=== PATIENT | male | born 1960 | race Caucasian/White ===

== ENCOUNTER → 2016-11-08 | Outpatient (CLI) | payer BC ==
[2016-11-08 07:57] LABS: HEMOGLOBIN 15.8 g/dL (14.1-18.0); LYMPH % 36.4 % (10-50)
[2016-11-08 08:45] LABS: BUN 12 mg/dL (7-18)
[2016-11-08 09:00] LABS: GFR (ESTIMATED) 116 ML/MIN (>60)
== END ==
LOC: LAB 07:08
PROVIDERS: Internal Medicine Adolescent Medicine
DX: E83.119 Hemochromatosis, unspecified (principal); R23.2 Flushing; L74.513 Primary focal hyperhidrosis, soles

== ENCOUNTER → 2017-05-03 | Outpatient (CLI) | payer BC ==
[2017-05-03 09:50] LABS: LYMPH # 2.4 K/mm3 (0.7-4.5); LYMPH % 32.8 % (10-50)
[2017-05-03 12:00] LABS: BUN 10 mg/dL (7-18); FREE THYROXIN INDEX 5.1 ug/dl (5.93-13.13)
[2017-05-03 12:02] LABS: GFR (ESTIMATED) 139 ML/MIN (>60)
[2017-05-09 10:42] LABS: UR VANILLYLMANDELIC ACID 1.6 mg/24hr (1.8 - 6.7)
== END ==
LOC: LAB 08:40
PROVIDERS: Internal Medicine Adolescent Medicine
DX: E83.110 Hereditary hemochromatosis (principal); G60.9 Hereditary and idiopathic neuropathy, unspecified; R23.2 Flushing; E78.5 Hyperlipidemia, unspecified